=== PATIENT | female | born 1985 | race Caucasian/White ===

== ENCOUNTER → 2023-01-13 | Outpatient (CLI) | payer OTHER ==
--- NOTE | 2023-01-13 17:04 | Diagnostic Imaging Report ---
EXAMINATION: Right hand radiographs, 3 views. COMPARISON: None. HISTORY: 37-year-old female, right hand pain. FINDINGS: There is no identified acute fracture. There is no subluxation or dislocation. There is no radiopaque foreign body. The joint spaces are well-preserved. IMPRESSION: 1. Unremarkable radiographs of the right hand. Dictated by: Dictated on workstation # [id number]
== END ==
LOC: RAD 12:24
PROVIDERS: ATTEND Surgery
DX: M79.641 Pain in right hand (principal)
CPT/HCPCS: 73130

== ENCOUNTER 2023-03-08 14:22 | Emergency (ER) | payer OTHER ==
[~2023-03-08] VITALS: Ht 154 cm; Wt 61.0 kg
[2023-03-08 14:24] VITALS: BP 122/82
--- NOTE | 2023-03-08 14:50 | ED General ---
General Chief Complaint: Oral/Throat Problems Stated Complaint: SORE THROAT/LETHARGIC Nursing Triage Note: PT TO ED W/ C/O SORE THROAT ONSET X4 DAYS W/ NO IMPROVEMENT ON ABX Source of Information: Patient Exam Limitations: No Limitations History of Present Illness Date Seen by Provider: Mar 08, 2023 Time Seen by Provider: 14:30 Allergies and Home Medications Allergies Coded Allergies: No Known Drug Allergies (Unverified , 03/08/23) Past Sfqrctq-Mdnltd-Amydnv Hx Patient Social History Tobacco Use?: No Use of E-Cig and/or Vaping dev: No Substance use?: No Alcohol Use?: No Pt feels they are or have been: No Past Medical History Surgery/Hospitalization HX: C SECTION THYROID Physical Exam Vital Signs Vital Signs - First Documented 03/08/23 14:24 Temp 35.9 Pulse 90 Resp 20 B/P (MAP) 122/82 (95) Pulse Ox 99 O2 Delivery Room Air Capillary Refill : Height, Weight, BMI Height: '" Weight: lbs. oz. kg; 25.00 BMI Method: Progress/Results/Core Measures Suspected Sepsis SIRS Temperature: Pulse: 90 Respiratory Rate: 20 Blood Pressure 122 /82 Mean: 95 Results/Orders Lab Results Laboratory Tests Test 03/08/23 14:30 03/08/23 14:38 Range/Units Influenza Type A (RT-PCR) Not Detected Not Detecte Influenza Type B (RT-PCR) Not Detected Not Detecte SARS-CoV-2 RNA (RT-PCR) Not Detected Not Detecte Group A Streptococcus Screen Not Detected NotDetected My Orders Orders - COLBY MORGAN MD Rapid Strep A Screen (03/08/23 14:38) Covid 19 Inhouse Test (03/08/23 14:30) Influenza A And B By Pcr (03/08/23 14:30) Lidocaine 2% Viscous 15 Ml (Xylocaine Vi (03/08/23 16:00) Lidocaine 2% Viscous 15 Ml (Xylocaine Vi (03/08/23 16:00) Vital Signs/I&O 03/08/23 14:24 Temp 35.9 Pulse 90 Resp 20 B/P (MAP) 122/82 (95) Pulse Ox 99 O2 Delivery Room Air Capillary Refill : Blood Pressure Mean: 95 Departure Impression Primary Impression: Pharyngitis Qualified Codes: J02.9 - Acute pharyngitis, unspecified Additional Impression: Flu-like symptoms Disposition: 01 HOME, SELF-CARE Condition: Stable Departure-Patient Inst. Decision time for Depature: 15:52 Referrals: JOCELINE WELDON DO (PCP/Family) Primary Care Physician Patient Instructions: Sore Throat, Adult (DC) Add. Discharge Instructions: Your sore throat is likely due to a viral illness or possibly incompletely treated strep throat. You may complete the antibiotics as previously prescribed. Sanitize or replace any oral instruments such as toothbrushes to prevent reinfection. You may treat pain with ibuprofen up to 600 mg every 6 hours as needed and/or Tylenol (acetaminophen) up to 1000 mg every 6 hours as needed. You may also use the viscous lidocaine provided. Squirt approximately 2 mL in the back of your mouth toward your throat. Gargle and swallow to provide pain relief. You may also try other soothing warm liquids such as warm tea with honey, warm Jell-O water, etc. Return to care if you have worsening symptoms despite following these instructions. If your symptoms persist beyond 10 days, consider additional testing such as a throat culture, mono testing, etc. Return to the emergency room if you have worsening symptoms despite following these instructions. All discharge instructions reviewed with patient and/or family. Voiced understanding. COLBY MORGAN MD Mar 08, 2023 14:50
[2023-03-08] MEDS ORDERED: LIDOCAINE 2% VISCOUS 15 ML UDC PO ONE ×2 (16:00)
== END 2023-03-08 16:02 | disposition home or self-care (01) ==
LOC: EDUNIT# 14:22 → ER 14:25
DX: J02.9 Acute pharyngitis, unspecified (principal)
CPT/HCPCS: 87430; 87636; 99283

== ENCOUNTER → 2023-04-09 | Outpatient (CLI) | payer OTHER ==
--- NOTE | 2023-04-09 14:57 | Diagnostic Imaging Report ---
INDICATION: Skin changes along the inferior aspect of the left breast. Correlation is made with diagnostic mammogram earlier the same day. Sonographic interrogation in the inferior left breast was performed. No sonographic abnormality is detected. Implant contour appears smooth. No solid or cystic mass is identified. IMPRESSION: No sonographic abnormality is detected. ACR BI-RADS Category 1: Negative. Result letter will be mailed to the patient. Note: At least 10% of breast cancer is not imaged by mammography. BI-RADS Category 1 Dictated by: Dictated on workstation # [id number]
--- NOTE | 2023-04-09 17:41 | Diagnostic Imaging Report ---
INDICATION: Skin changes in the left breast, inferiorly. COMPARISON: No prior mammogram is available for comparison. This a baseline study. EXAMINATION: 2D and 3D bilateral diagnostic mammography was performed with CAD. The current study was also evaluated with a Computer Aided Detection (CAD) system. FINDINGS: bilateral subpectoral breast implants are noted. Implant contours are smooth, without evidence of extracapsular rupture. Both breasts are heterogeneously dense, limiting the sensitivity of mammography. No mass or malignant-appearing microcalcifications are identified. Axillae are unremarkable. IMPRESSION: No mammographic feature suspicious for malignancy is identified. Even so, sonographic interrogation of the inferior left breast at the area of skin changes is recommended and will be performed today. ACR BI-RADS Category 0: Incomplete. (Needs additional imaging evaluation). Result letter will be mailed to the patient. Note: At least 10% of breast cancer is not imaged by mammography. Dictated by: Dictated on workstation # [id number]
== END ==
LOC: RAD 13:15
PROVIDERS: ATTEND Surgery
DX: N64.89 Other specified disorders of breast (principal)
CPT/HCPCS: 76642; 77066; G0279; 77062